=== PATIENT | female | born 2000 | race Hispanic/Latino ===

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

== ENCOUNTER 2024-05-31 20:42 | Emergency (ER) | payer MEDICAID, OTHER ==
[~2024-05-31] VITALS: Ht 165.1 cm; Wt 89.8 kg
[2024-05-31] MEDS: acetaMINOPHEN 500 MG TABLET PO ONE (23:10)
[2024-05-31 23:11] VITALS: BP 133/79; PULSE 74; RESP 18; O2SAT 99
== END 2024-05-31 23:21 | disposition home or self-care (01) ==
LOC: EDH 20:42
DX: R07.89 Other chest pain (principal); V89.2XXA Person injured in unspecified motor-vehicle accident, traffic, initial encounter; Y93.I9 Activity, other involving external motion; Y92.89 Other specified places as the place of occurrence of the external cause; Y99.8 Other external cause status
CPT/HCPCS: 71045

== ENCOUNTER 2025-01-20 16:23 | Emergency (ER) | payer OTHER ==
[~2025-01-20] VITALS: Ht 165.1 cm; Wt 88.9 kg
[2025-01-20 16:48] LABS: ADD UA MICROSCOPIC YES; APPEARANCE,URINE CLOUDY (CLEAR); BILIRUBIN,URINE NEGATIVE (NEGATIVE); COLOR,URINE LIGHT-YELLOW (YELLOW); GLUCOSE, URINE (UA) >=1000 mg/dL (NEGATIVE); KETONES,URINE 100 mg/dL (NEGATIVE); LEUKOCYTE ESTERASE ,URINE 500 Leu/uL (NEGATIVE); NITRATE,URINE 1+ (NEGATIVE); OCCULT BLOOD,URINE SMALL (NEGATIVE); PH,URINE 5.5 (5.0-8.0); PROTEIN,URINE 100 mg/dL (NEGATIVE); UROBILINOGEN,URINE 0.2 mg/dL (0.2-1.0)
[2025-01-20 16:52] LABS: BACTERIA,URINE RARE /HPF (None Seen); SQUAMOUS EPITHELIAL CELL,UR FEW /HPF (0-2); UNCLASSIFIED CRYSTAL 2 /HPF (None Seen); WBC CLUMP FEW /HPF (0-1); WBC,URINE 51-100 /HPF (0-1)
[2025-01-20 17:05] LABS: BASOPHILS # (AUTO) 0.03 K/uL (0.00-0.20); BASOPHILS % (AUTO) 0.3 % (0.0-5.0); EOSINOPHILS # (AUTO) 0.03 K/uL (0.00-0.70); EOSINOPHILS % (AUTO) 0.3 % (0.0-8.0); HEMATOCRIT 39.2 % (36-48); IMMATURE GRANULOCYTE ABSOLUTE 0.04 K/uL (0-1); LYMPHOCYTES # (AUTO) 1.7 K/uL (1.0-4.8); LYMPHOCYTES % (AUTO) 17.8 % (21.0-51.0); MEAN CORPUSCULAR HEMOGLOBIN 30.2 pg (27.0-33.0); MEAN CORPUSCULAR HGB CONC 35.5 g/dL (32.0-36.0); MEAN CORPUSCULAR VOLUME 85.2 fL (79-99); MONOCYTES % (AUTO) 10.3 % (3.0-13.0); NEUTROPHILS # (AUTO) 6.9 K/uL (1.8-7.7); NEUTROPHILS % (AUTO) 70.9 % (40.0-77.0); PLATELET COUNT (AUTO) 242 K/uL (130-400); RED CELL DISTRIBUTION WIDTH 12.2 % (11.0-15.5); WHITE BLOOD COUNT (AUTO) 9.7 K/uL (4.8-10.8)
[2025-01-20] MEDS: 0.9%NACL 1000ML 1,000 ML IV ONE (17:11)
[2025-01-20 17:15] LABS: CREATININE 0.7 mg/dL (0.5-1.0); POTASSIUM 3.8 mmol/L (3.5-5.1)
[2025-01-20] MEDS: 0.9%NACL 1000ML 1,000 ML IV SCH (17:27)
--- NOTE | 2025-01-20 18:13 | NUR ---
PT JUST RETURNED FROM CT SCAN
--- NOTE | 2025-01-20 18:23 | ERN ---
General Chief Complaint: Flank Pain Stated Complaint: KIDNEY/BACK PAIN Time Seen by MD: 16:26 Source: patient History of Present Illness Initial Comments IN HIS IS A 24-YEAR-OLD FEMALE COMING IN TO BE EVALUATED FOR LOWER ABDOMINAL PAIN. PER PATIENT THE PAIN BEGAN EARLIER TODAY. SHE STATES THAT SHE HAD BREAKFAST SHORTLY AFTER HAVING BREAKFAST SHE STARTED HAVING RIGHT LOWER QUADRANT AND LOWER ABDOMINAL PAIN. SHE STATES HE DECIDED TO COME IN FOR FURTHER EVALUATION. Allergies: Coded Allergies: No Known Drug Allergies (Verified Allergy, 08/16/12) Past Medical History Past Medical History: Diabetes-Type II Past Surgical History: Tonsillectomy Female( History) LMP: Dec 29, 2024 ROS Dictation CONSTITUTIONAL: NO CHILLS, NO FEVER, NO WEAKNESS, NO DIAPHORESIS, NO MALAISE. HEAD/FACE: NO SIGNS OF TRAUMA. EENT: NO EYE PAIN, NO BLURRED VISION, NO TEARING, NO DOUBLE VISION, NO EAR PAIN, NO EAR DISCHARGE, NO NOSE PAIN, NO NASAL CONGESTION, NO THROAT PAIN, NO THROAT SWELLING, NO MOUTH PAIN. RESPIRATORY: NO COUGH, NO ORTHOPNEA, NO SOB, NO STRIDOR, NO WHEEZING. CARDIOVASCULAR: NO CHEST PAIN, NO EDEMA, NO PALPITATIONS, NO SYNCOPE. GASTROINTESTINAL/ABDOMINAL: ABDOMINAL PAIN, NO CONSTIPATION, NO DIARRHEA, NO NAUSEA, NO VOMITING. GENITOURINARY: NO ABNORMAL DISCHARGE, NO DYSURIA, NO FREQUENT URINATION, NO HEMATURIA. NO COMPLAINTS OF PAIN IN THE GENITALS. MUSCULOSKELETAL: NO BACK PAIN, NO GOUT, NO JOINT PAIN, NO JOINT SWELLING, NO MUSCLE PAIN, NO MUSCLE STIFFNESS, NO NECK PAIN. INTEGUMENTARY: NO CHANGE IN COLOR, NO CHANGE IN HAIR/NAILS, NO DRYNESS, NO LESION, NO LUMPS, NO RASH. NEUROLOGICAL/PSYCH: NO ANXIETY, NOT DEPRESSED, NO EMOTIONAL PROBLEM, NO HEADACHE, NO NUMBNESS, NO PRE-EXISTING DEFICIT, NO HISTORY OF SEIZURES, NO JANA MORS, NO WEAKNESS. HEMATOLOGIC/LYMPHATIC: NOT ANEMIC, NO HISTORY OF BLOOD CLOTS, NO APPARENT BLEEDING, NO BRUISING, GLANDS NOT SWOLLEN. ALL SYSTEMS NEGATIVE, EXCEPT NOTED. Physical Exam Physical Exam Dictation VITAL SIGNS: REVIEWED. GENERAL APPEARANCE: ALERT, ORIENTED X3, NO ACUTE DISTRESS, OBESE. HEAD AND FACE: NON-TRAUMATIC. EYES: PERRL, PINK CONJUNCTIVAS, EYELID NO TRAUMA, ANTERIOR CHAMBER CLEAR. EARS: PINNAS INTACT AND NO SIGNS OF TRAUMA OR ERYTHEMA. EAR CANALS CLEAR AND NO DISCHARGE. TMS NO ERYTHEMA. NOSE: NO DISCHARGE, NO BLEEDING. OROPHARYNX: MOUTH NORMAL, TEETH NO CARIES, TONGUE PINK. PHARYNX CLEAR, NO ERYTHEMA. TONSILS NO EXUDATES, NO ABSCESSES NOTED. MUCOUS MEMBRANE MOIST. NECK: SUPPLE, NON-TENDER, NO THYROMEGALY, NO MASSES, NO JVD, NO BRUITS. BREAST: DEFERRED. CHEST: NO TENDERNESS, NO CREPITUS, NO PARADOXICAL MOVEMENT, NO RETRACTIONS. LUNGS: CLEAR, WELL-VENTILATED, SYMMETRIC, NO RALES, NO WHEEZING, NO RHONCHI, NO STRIDOR, GOOD BREATH SOUNDS BILATERALLY. HEART: REGULAR RATE, REGULAR RHYTHM, NO MURMUR, NO GALLOPS. VASCULAR: NO PERIPHERAL EDEMA. ABDOMEN: SOFT, POSITIVE BOWEL SOUNDS, NONDISTENDED, NO GUARDING, RIGHT LOWER QUADRANT PAIN, REBOUND, NO MASSES NO HEPATOMEGALY, NO SPLENOMEGALY, NO SOLIMAN'S SIGN, NO HERNIAS. RECTAL: DEFERRED. GENITAL: DEFERRED. NEUROLOGICAL: NORMAL SPEECH, GROSS MOTOR FUNCTION INTACT, GROSS SENSORY FUNCTION INTACT. MUSCULOSKELETAL: NECK NONTENDER, FULL RANGE OF MOTION, BACK NONTENDER, FULL RANGE OF MOTION. EXTREMITIES: NONTENDER, FULL RANGE OF MOTION. SKIN: COLOR PINK, DRY, NO TURGOR, NO RASH, NO LACERATIONS, NO ABRASIONS, NO CONTUSIONS. LYMPHATICS: DEFERRED. Results Laboratory and Microbiology Lab and Micro Result Laboratory Tests Test 01/20/25 16:31 01/20/25 16:47 Urine Color LIGHT-YELLOW (YELLOW) Urine Appearance CLOUDY (CLEAR) H Urine pH 5.5 (5.0-8.0) Urine Specific [place] 1.034 (1.001-1.031) Urine Protein 100 mg/dL (NEGATIVE) H Urine Glucose (UA) >=1000 mg/dL (NEGATIVE) H Urine Ketones 100 mg/dL (NEGATIVE) H Urine Occult Blood SMALL (NEGATIVE) H Urine Nitrate 1+ (NEGATIVE) H Urine Bilirubin NEGATIVE mg/dL (NEGATIVE) Urine Urobilinogen 0.2 mg/dL (0.2-1.0) Urine Leukocyte Esterase 500 [place]/uL (NEGATIVE) H Urine RBC 11-25 /HPF (0-1) H Urine WBC 51-100 /HPF (0-1) H Urine WBC Clumps (Auto) FEW /HPF (0-1) Urine Squamous Epithelial Cells FEW /HPF (0-2) Urine Other Crystals (Auto) 2 /HPF (None Seen) Urine Bacteria RARE /HPF (None Seen) White Blood Count 9.7 K/uL (4.8-10.8) Red Blood Count 4.60 MIL/uL (4.00-5.50) Hemoglobin 13.9 g/dL (12.0-16.0) Hematocrit 39.2 % (36-48) Mean Corpuscular Volume 85.2 fL (79-99) Mean Corpuscular Hemoglobin 30.2 pg (27.0-33.0) Mean Corpuscular Hemoglobin Concent 35.5 g/dL (32.0-36.0) Red Cell Distribution Width 12.2 % (11.0-15.5) Platelet Count 242 K/uL (130-400) Mean Platelet Volume 12.7 fL (7.5-10.5) H Immature Granulocyte % (Auto) 0.4 % (0-1) Neutrophils (%) (Auto) 70.9 % (40.0-77.0) Lymphocytes (%) (Auto) 17.8 % (21.0-51.0) L Monocytes (%) (Auto) 10.3 % (3.0-13.0) Eosinophils (%) (Auto) 0.3 % (0.0-8.0) Basophils (%) (Auto) 0.3 % (0.0-5.0) Neutrophils # (Auto) 6.9 K/uL (1.8-7.7) Lymphocytes # (Auto) 1.7 K/uL (1.0-4.8) Monocytes # (Auto) 1.0 K/uL (0.1-1.0) Eosinophils # (Auto) 0.03 K/uL (0.00-0.70) Basophils # (Auto) 0.03 K/uL (0.00-0.20) Absolute Immature Granulocyte (auto 0.04 K/uL (0-1) Nucleated Red Blood Cells 0.0 % (0.0-0.19) Sodium Level 131 mmol/L (136-145) L Potassium Level 3.8 mmol/L (3.5-5.1) Chloride Level 94 mmol/L (101-111) L Carbon Dioxide Level 27 mmol/L (21-32) Blood Urea Nitrogen 12 mg/dL (7-18) Creatinine 0.7 mg/dL (0.5-1.0) Glomerular Filtration Rate Calc 125 mL/min (>90) Random Glucose 347 mg/dL (70-105) H Lactic Acid Level 1.3 mmol/L (0.8-2.5) Total Calcium 9.0 mg/dL (8.5-10.1) Total Creatine Kinase 27 U/L (21-232) Troponin I High Sensitivity < 4 ng/L (4-50) L Serum Test, Qualitative NEGATIVE (NEGATIVE) Labs Reviewed?: Yes EKG/XRAY/US/CT/MRI CT Scan Comment [facility] [address] [place] [address] IMAGING REPORT Signed PATIENT: RUFINO CRESPO MR#: [id number] : 2000 SEX: F AGE: 24 LOCATION: [facility] ORDER 27 STATUS: [facility] REPORT#: [id number] SERVICE 172 REASON: FLANK PAIN ORDERING PHYSICIAN: BALBINA MONTANO MD PROCEDURE: ABD PEL WO - CT ABDOMEN/PELVIS W/O CONTRAST CT ABDOMEN/PELVIS W/O CONTRAST CLINICAL HISTORY: FLANK PAIN COMPARISON: None TECHNIQUE: Sequential axial images of abdomen and pelvis without contrast and with sagittal and coronal reconstructions. CT was performed with one or more of the following dose reduction techniques: automated exposure control, adjustment of the mA and/or kV according to patient size, or use of iterative reconstruction technique FINDINGS: The lung bases are clear. The liver and spleen are unremarkable. The gallbladder pancreas and adrenal glands and left kidney are unremarkable. There is minimal right perinephric stranding with no identified hydronephrosis or nephrolithiasis. There is also air demonstrated within the bladder. There is no identified bowel obstruction. There is no bulky abdominal or retroperitoneal lymphadenopathy. The appendix is normal. There are multiple subcentimeter sized retroperitoneal lymph nodes. There is no free air or free fluid. The bony structures are unremarkable. The uterus is within normal limits. IMPRESSION: Mild right perinephric stranding with air in the bladder worrisome for urinary tract infection and right pyelonephritis DICTATED BY: DAMON BEARD DO DATE: 01/20/25 183 ELECTRONICALLY SIGNED BY: DAMON BEARD DO DATE: 01/20/25 1845 MDM MDM: DIFFERENTIAL DIAGNOSIS: NEPHRITIS, UTI, CYSTITIS RATIONALE: TESTS CONSIDERED AND ORDERED SECONDARY TO SHARED DECISION MAKING INCLUDE: PATIENT IS A 24-YEAR-OLD FEMALE COMING IN TO BE EVALUATED FOR LOWER ABDOMINAL PAIN. CT DISCLOSE A PYELONEPHRITIS. WHITE BLOOD CELL COUNT WITHIN NORMAL LIMITS. PATIENT WILL BE DISCHARGED IN STABLE CONDITION WITH A DIAGNOSIS OF PYELONEPHRITIS ANTIBIOTICS WILL BE PROVIDED. I DID ADVISED HER APPROPRIATE FOLLOW UP WITH PCP IN 1-2 DAYS FOR LONG-TERM MANAGEMENT. ED Course Orders Procedure Category Date Status Time Cbc With Differential LAB 01/20/25 Complete 16: Testing, LAB 01/20/25 Complete Serum Hcg 16:29 Blood Cult [place] 01/20/25 In Process 16:29 Urinalysis Profile LAB 01/20/25 Complete 16:29 Culture Urine [place] 01/20/25 In Process 16:29 Creatine Kinase, Total LAB 01/20/25 Complete 16:29 Troponin I High LAB 01/20/25 Complete Sensitivity 16:29 Lactic Acid LAB 01/20/25 Complete 16:29 Basic Metabolic Panel LAB 01/20/25 Complete 16:29 0.9%Nacl 1000ml (Ns PHA 01/20/25 Complete 1000ml) 16:30 0.9%Nacl 1000ml (Ns PHA 01/20/25 Complete 1000ml) 17:30 Ct Abdomen/Pelvis W/O CT 01/20/25 Resulted Contrast 17:27 Acetaminophen 500mg PHA 01/20/25 Complete Tab (Tylenol 500mg T 18:30 Zosyn 3.375gm+Ns 50ml PHA 01/20/25 In Process (Zosyn 3.375gm+Ns 19:00 Current Medications Medications (Trade) Dose Ordered Sig/Flakito Route PRN Reason Start Time Stop Time Status Last Admin Dose Admin Acetaminophen (TYLenol 500MG TAB) 1,000 mg ONCE ONCE PO 01/20/25 18:30 01/20/25 18:37 DC 01/20/25 18:42 Piperacillin Sod/ Tazobactam Sod (Zosyn 3.375gm+NS 50ml) 3.375 gm ONCE ONCE IV 01/20/25 19:00 01/20/25 19:01 01/20/25 18:40 Sodium Chloride 1,000 ml @ 0 mls/hr ONCE ONCE IV 01/20/25 16:30 01/20/25 16:40 DC 01/20/25 17:11 Sodium Chloride 1,000 ml @ 999 mls/hr Q1H1M IV 01/20/25 17:30 01/20/25 18:30 DC 01/20/25 17:27 Vital Signs Date Time Temp Pulse Resp B/P (MAP) Pulse Ox O2 Delivery O2 Flow Rate FiO2 01/20/25 18:42 100.0 01/20/25 17:13 121 19 138/78 100 Room Air* 0 21 01/20/25 16:28 99.7 121 18 146/101 100 0 DX & DISP Disposition: Discharge Departure Impression: Primary Impression: Pyelonephritis Additional Impression: UTI (urinary tract infection) Condition: Stable Scripts Acetaminophen (Tylenol) 500 Mg Tab 1 TAB PO Q6HPRN PRN for pain or fever for 5 Days, #30 TAB 0 Refills Prov: BALBINA MONTANO MD 01/20/25 Cephalexin Monohydrate (Keflex) 500 Mg Cap 1 CAP PO BID for 10 Days, #20 CAP 0 Refills Prov: BALBINA MONTANO MD 01/20/25 Additional Instructions: FOLLOW-UP WITH PRIMARY CARE PROVIDER IN 1 TO 2 DAYS. TAKE MEDICATIONS DIRECTED HERE IN THE EMERGENCY ROOM. OKAY TO CONTINUE HOME MEDICATIONS UNLESS OTHERWISE DISCUSSED DURING YOUR VISIT IN THE EMERGENCY ROOM TODAY. RETURN TO YOUR NEAREST EMERGENCY ROOM IF SYMPTOMS WORSEN OR IF THERE IS NO IMPROVEMENT. CALL 911 IF YOU NEED IMMEDIATE ASSISTANCE. TAKE TYLENOL [id number] NEEDED AND IF NO CONTRAINDICATIONS ARE PRESENT. INCREASE ORAL HYDRATION. A WOUND CULTURE OR URINE CULTURE WAS ORDERED HERE IN THE EMERGENCY ROOM DEPARTMENT PLEASE FOLLOW-UP WITH PRIMARY CARE PROVIDER AND ADVISE THEM TO GET REPEAT PORTS FROM OUR FACILITY. IF YOU HAD ANY ALANNA WRAP/SPLINTS THAT WERE APPLIED HERE, PLEASE DO NOT REMOVE THEM UNTIL YOU SEE YOUR PRIMARY CARE OR SPECIALTY. REFERRALS: Referrals: ISABELLE VAZQUEZ DO (PCP) Time of Disposition: 18:49 BALBINA MONTANO MD Jan 20, 2025 18:23
[2025-01-20] MEDS: ZOSYN 3.375GM +NS 50ML IV ONE (18:40)
[2025-01-20 18:42] VITALS: TEMP 100.1
[2025-01-20] MEDS: acetaMINOPHEN 500 MG TABLET PO ONE (18:42)
--- NOTE | 2025-01-20 18:45 | HMCIMG ---
CT ABDOMEN/PELVIS W/O CONTRAST CLINICAL HISTORY: FLANK PAIN COMPARISON: None TECHNIQUE: Sequential axial images of abdomen and pelvis without contrast and with sagittal and coronal reconstructions. CT was performed with one or more of the following dose reduction techniques: automated exposure control, adjustment of the mA and/or kV according to patient size, or use of iterative reconstruction technique FINDINGS: The lung bases are clear. The liver and spleen are unremarkable. The gallbladder pancreas and adrenal glands and left kidney are unremarkable. There is minimal right perinephric stranding with no identified hydronephrosis or nephrolithiasis. There is also air demonstrated within the bladder. There is no identified bowel obstruction. There is no bulky abdominal or retroperitoneal lymphadenopathy. The appendix is normal. There are multiple subcentimeter sized retroperitoneal lymph nodes. There is no free air or free fluid. The bony structures are unremarkable. The uterus is within normal limits. IMPRESSION: Mild right perinephric stranding with air in the bladder worrisome for urinary tract infection and right pyelonephritis
[2025-01-20] MEDS ORDERED: CEPH500B PO (18:53)
[2025-01-20] MEDS ORDERED: ACET-66 PO (18:53)
[2025-01-20 19:50] VITALS: BP 132/67; PULSE 89; RESP 16; TEMP 98.1; O2SAT 98
== END 2025-01-20 20:22 | disposition home or self-care (01) ==
LOC: EDH 16:23
DX: N12 Tubulo-interstitial nephritis, not specified as acute or chronic (principal); N39.0 Urinary tract infection, site not specified; E11.9 Type 2 diabetes mellitus without complications; Z90.89 Acquired absence of other organs
CPT/HCPCS: 99285; 74176; 96365; 96361; 82550; 84484; 80048; 84703; 85025; 87040 ×2; 87086 ×2; 87186; 83605; 81001; 36415; J7030 ×2; J2543